=== PATIENT | male | born 1950 | race Caucasian/White ===

== ENCOUNTER 2017-01-08 13:09 | Outpatient (CLI) | payer OTHER | END 2017-01-08 13:10 | DX: I10 Essential (primary) hypertension (principal); E78.5 Hyperlipidemia, unspecified; E11.9 Type 2 diabetes mellitus without complications ==

== ENCOUNTER → 2017-07-25 | Outpatient (CLI) | payer OTHER ==
[2017-07-25 19:29] LABS: HEMOGLOBIN A1C 0.77 g/dL
[2017-07-25 19:34] LABS: CREATININE 1.1 mg/dL (0.6-1.2); POTASSIUM 4.1 mmol/L (3.5-5.0)
== END ==
LOC: LAB.WCP 08:00
PROVIDERS: ATTEND Family Medicine
DX: I10 Essential (primary) hypertension (principal); E11.9 Type 2 diabetes mellitus without complications
CPT/HCPCS: 36415; 80048; 83036

== ENCOUNTER 2018-01-17 08:00 | Outpatient (CLI) | payer MEDICARE, OTHER ==
[2018-01-17 19:22] LABS: CALCIUM 9.7 mg/dL (8.5-10.3); CREATININE 1.1 mg/dL (0.6-1.2)
[2018-01-17 20:13] LABS: HB2 TOTAL 16.7 g/dL; HEMOGLOBIN A1C 0.8 g/dL; HEMOGLOBIN A1C % 6.5 % (4.6-6.2)
== END 2018-01-17 08:01 | disposition home or self-care (01) ==
LOC: LAB.WCP 08:00
PROVIDERS: ATTEND Family Medicine
DX: I10 Essential (primary) hypertension (principal); E11.9 Type 2 diabetes mellitus without complications
CPT/HCPCS: 36415; 80048; 83036

== ENCOUNTER 2018-05-21 14:29 | Outpatient (CLI) | payer MEDICARE, OTHER ==
[2018-05-21 19:06] LABS: BASOPHILS # (AUTO) 0.1 10^3/uL (0.0-0.1); BASOPHILS % (AUTO) 0.9 %; EOSINOPHILS # (AUTO) 0.1 10^3/uL (0.0-0.7); EOSINOPHILS % (AUTO) 2.1 %; HGB - HEMOGLOBIN 14.9 g/dL (14.0-18.0); LYMPHOCYTES # (AUTO) 1.3 10^3/uL (1.5-3.5); LYMPHOCYTES % (AUTO) 22.6 %; MEAN CORPUSCULAR HEMOGLOBIN 31.3 pg (27.0-31.0); MEAN CORPUSCULAR HGB CONC 33.7 g/dL (32.0-36.0); MEAN CORPUSCULAR VOLUME 93.1 fL (80.0-94.0); MEAN PLATELET VOLUME 9.7 fL (7.4-11.4); MONOCYTES # (AUTO) 0.5 10^3/uL (0.0-1.0); MONOCYTES % (AUTO) 9.2 %; NEUTROPHILS # (AUTO) 3.7 10^3/uL (1.5-6.6); NEUTROPHILS % (AUTO) 65.2 %; PLT - PLATELET COUNT 209 10^3/uL (130-450); RED BLOOD COUNT 4.77 10^6/uL (4.70-6.10); RED CELL DISTRIBUTION WIDTH 14.3 % (12.0-15.0); WHITE BLOOD COUNT 5.7 x10^3/uL (4.8-10.8)
[2018-05-21 19:22] LABS: HB2 TOTAL 16.1 g/dL; HEMOGLOBIN A1C 0.69 g/dL; HEMOGLOBIN A1C % 6.1 % (4.6-6.2)
[2018-05-21 19:37] LABS: ALBUMIN 3.6 g/dL (3.2-5.5); ALBUMIN/GLOBULIN RATIO 1.1 (1.0-2.2); ALKALINE PHOSPHATASE 40 IU/L (42-121); ALT ALANINE AMINOTRANSFERASE 41 IU/L (10-60); AST ASPARTATE AMINOTRANSFERASE 31 IU/L (10-42); BILIRUBIN,TOTAL 0.9 mg/dL (0.2-1.0); BUN - BLOOD UREA NITROGEN 22 mg/dL (6-20); CARBON DIOXIDE - CO2 25 mmol/L (21-32); CHLORIDE 105 mmol/L (101-111); CHOL/HDL RATIO 6.2 (<5.0); CHOLESTEROL 186 mg/dL; CREATININE 1.1 mg/dL (0.6-1.2); GFR - MDRD 67 (>89); GLUCOSE 136 mg/dL (70-100); HDL CHOLESTEROL 30 mg/dL; LDL CHOLESTEROL,CALCULATED 124 mg/dL; LDL/HDL RATIO 4.1 (<3.6); SODIUM 138 mmol/L (135-145); VLDL CHOLESTEROL 32 mg/dL
== END 2018-05-21 14:30 | disposition home or self-care (01) ==
LOC: LAB.WCP 14:29
PROVIDERS: ATTEND Family Medicine
DX: E78.5 Hyperlipidemia, unspecified (principal); E11.9 Type 2 diabetes mellitus without complications; I10 Essential (primary) hypertension
CPT/HCPCS: 36415; 80053; 80061; 82043; 83036; 83721; 85025

== ENCOUNTER 2019-06-25 14:25 | Outpatient (CLI) | payer MEDICARE, OTHER ==
[2019-06-25 19:18] LABS: BASOPHILS # (AUTO) 0.1 10^3/uL (0.0-0.1); BASOPHILS % (AUTO) 1.3 %; EOSINOPHILS # (AUTO) 0.2 10^3/uL (0.0-0.7); EOSINOPHILS % (AUTO) 2.4 %; HGB - HEMOGLOBIN 15.8 g/dL (14.0-18.0); LYMPHOCYTES # (AUTO) 1.3 10^3/uL (1.5-3.5); LYMPHOCYTES % (AUTO) 20.4 %; MEAN CORPUSCULAR HEMOGLOBIN 30.4 pg (27.0-31.0); MEAN CORPUSCULAR VOLUME 92.1 fL (80.0-94.0); MEAN PLATELET VOLUME 11.9 fL (7.4-11.4); MONOCYTES # (AUTO) 0.6 10^3/uL (0.0-1.0); MONOCYTES % (AUTO) 9.3 %; NEUTROPHILS # (AUTO) 4.1 10^3/uL (1.5-6.6); PLT - PLATELET COUNT 227 10^3/uL (130-450); RED CELL DISTRIBUTION WIDTH 13.6 % (12.0-15.0); WHITE BLOOD COUNT 6.2 x10^3/uL (4.8-10.8)
[2019-06-25 19:35] LABS: ALBUMIN/GLOBULIN RATIO 1.2 (1.0-2.2); ALKALINE PHOSPHATASE 43 IU/L (42-121); ALT ALANINE AMINOTRANSFERASE 22 IU/L (10-60); AST ASPARTATE AMINOTRANSFERASE 21 IU/L (10-42); BILIRUBIN,TOTAL 0.8 mg/dL (0.2-1.0); BUN - BLOOD UREA NITROGEN 15 mg/dL (6-20); CALCIUM 9.1 mg/dL (8.5-10.3); CARBON DIOXIDE - CO2 25 mmol/L (21-32); CHLORIDE 102 mmol/L (101-111); CHOL/HDL RATIO 6.9 (<5.0); CHOLESTEROL 201 mg/dL; CREATININE 1.2 mg/dL (0.6-1.2); GFR - MDRD 61 (>89); GLUCOSE 146 mg/dL (70-100); HDL CHOLESTEROL 29 mg/dL; LDL CHOLESTEROL,CALCULATED 145 mg/dL; SODIUM 139 mmol/L (135-145); TOTAL PROTEIN 7.3 g/dL (6.7-8.2); VLDL CHOLESTEROL 27 mg/dL
[2019-06-25 20:14] LABS: HB2 TOTAL 16.8 g/dL; HEMOGLOBIN A1C 0.94 g/dL; HEMOGLOBIN A1C % 7.3 % (4.6-6.2)
== END 2019-06-25 23:59 | disposition home or self-care (01) ==
LOC: LAB.WC 14:25
PROVIDERS: ATTEND Family Medicine
DX: E11.9 Type 2 diabetes mellitus without complications (principal); Z12.5 Encounter for screening for malignant neoplasm of prostate
CPT/HCPCS: 36415; 80053; 80061; 83036; 83721; 84153; 85025

== ENCOUNTER 2019-09-24 05:50 | Day surgery (SDC) | payer MEDICARE, OTHER ==
[2019-09-24] MEDS ORDERED: fentaNYL 250 MCG/5 ML VIAL IVP ONE (05:51)
[2019-09-24] MEDS ORDERED: MIDAZOLAM 2 MG/2 ML VIAL IVP ONE (05:51)
[2019-09-24] MEDS ORDERED: LACTATED RINGERS 1,000 ML IV ONE (06:52)
[2019-09-24 08:34] VITALS: BP 104/56
== END 2019-09-24 05:51 | disposition home or self-care (01) ==
LOC: SDS 05:50
PROVIDERS: ATTEND Surgery
PROC: 0DJD8ZZ Inspection of Lower Intestinal Tract, Via Natural or Artificial Opening Endoscopic (ICD-10-PCS; principal; 2019-09-24 07:30)
DX: Z12.11 Encounter for screening for malignant neoplasm of colon (principal); I10 Essential (primary) hypertension; E11.9 Type 2 diabetes mellitus without complications; E66.9 Obesity, unspecified; Z79.899 Other long term (current) drug therapy; Z79.4 Long term (current) use of insulin; Z87.891 Personal history of nicotine dependence; Z68.38 Body mass index [BMI] 38.0-38.9, adult
CPT/HCPCS: G0121; J3010; J7120

== ENCOUNTER 2020-08-31 08:00 | Outpatient (CLI) | payer MEDICARE, OTHER ==
[2020-08-31 18:05] LABS: BASOPHILS # (AUTO) 0.1 10^3/uL (0.0-0.1); BASOPHILS % (AUTO) 1.1 %; EOSINOPHILS # (AUTO) 0.2 10^3/uL (0.0-0.7); EOSINOPHILS % (AUTO) 3.5 %; LYMPHOCYTES # (AUTO) 1.1 10^3/uL (1.5-3.5); MEAN CORPUSCULAR HEMOGLOBIN 30.1 pg (27.0-31.0); MEAN CORPUSCULAR HGB CONC 33.3 g/dL (32.0-36.0); MEAN CORPUSCULAR VOLUME 90.2 fL (80.0-94.0); MEAN PLATELET VOLUME 11.5 fL (7.4-11.4); MONOCYTES # (AUTO) 0.6 10^3/uL (0.0-1.0); MONOCYTES % (AUTO) 10.1 %; NEUTROPHILS # (AUTO) 3.5 10^3/uL (1.5-6.6); NEUTROPHILS % (AUTO) 64.9 %; PLT - PLATELET COUNT 246 10^3/uL (130-450); RED BLOOD COUNT 5.32 10^6/uL (4.70-6.10); RED CELL DISTRIBUTION WIDTH 13.6 % (12.0-15.0); WHITE BLOOD COUNT 5.4 x10^3/uL (4.8-10.8)
[2020-08-31 18:23] LABS: ALBUMIN 4.1 g/dL (3.2-5.5); ALBUMIN/GLOBULIN RATIO 1.2 (1.0-2.2); ALKALINE PHOSPHATASE 45 IU/L (42-121); ALT ALANINE AMINOTRANSFERASE 21 IU/L (10-60); AST ASPARTATE AMINOTRANSFERASE 19 IU/L (10-42); BILIRUBIN,TOTAL 0.6 mg/dL (0.2-1.0); BUN - BLOOD UREA NITROGEN 23 mg/dL (6-20); CALCIUM 9.7 mg/dL (8.5-10.3); CARBON DIOXIDE - CO2 25 mmol/L (21-32); CHLORIDE 102 mmol/L (101-111); CHOL/HDL RATIO 5.8 (<5.0); CHOLESTEROL 168 mg/dL; CREATININE 1.1 mg/dL (0.6-1.2); CREATININE,URINE 99.4 mg/dL; GLUCOSE 156 mg/dL (70-100); HDL CHOLESTEROL 29 mg/dL; LDL CHOLESTEROL,CALCULATED 96 mg/dL; LDL/HDL RATIO 3.3 (<3.6); MICROALBUMIN,URINE 0.4 mg/dL (0-300.0); SODIUM 135 mmol/L (135-145); TOTAL PROTEIN 7.5 g/dL (6.7-8.2); VLDL CHOLESTEROL 43 mg/dL
[2020-08-31 20:05] LABS: HEMOGLOBIN A1c% 7.3 % (4.27-6.07)
== END 2020-08-31 23:59 | disposition home or self-care (01) ==
LOC: LAB.WCP 08:00
PROVIDERS: ATTEND Family Medicine
DX: E11.9 Type 2 diabetes mellitus without complications (principal); Z12.5 Encounter for screening for malignant neoplasm of prostate
CPT/HCPCS: 36415; 80053; 80061; 82043; 82570; 83036; 85025; G0103; 83721; 84153

== ENCOUNTER 2021-01-10 09:45 | Outpatient (CLI) | payer MEDICARE, OTHER ==
--- NOTE | 2021-01-10 14:57 | Ultrasound Report ---
PROCEDURE: Aorta Screening INDICATIONS: NICOTINE ADDICTION IN REMISSION TECHNIQUE: Real time scanning was performed of the aorta and iliac arteries, with image documentatio n. COMPARISON: None. FINDINGS: Aorta: Proximal aortic diameter was not measured secondary to overlying bowel gas. Mid-aorta measure s 3.1 x 3.1 cm. Distal aortic diameter is 1.8 x 2.0 cm. Iliac arteries: Right common iliac artery measures 1.3 x 1.3 cm. Left common iliac artery measures 1.1 x 1.2 cm. IMPRESSION: Limited visualization of the abdominal aorta secondary to moderate amount of overlying bowel gas. The proximal aorta was not well visualized. There is mild aneurysmal dilatation of the mid abdominal aor ta measuring 3.1 x 3.1 cm. Based on consensus criteria, recommend follow-up ultrasound in 3 years. Reviewed by: Tomás Dodd MD on 01/10/2021 2:55 PM PST Approved by: Tomás Dodd MD on 01/10/2021 2:55 PM PST Station ID: [id number]
== END 2021-01-10 09:46 | disposition home or self-care (01) ==
LOC: DI 09:45
PROVIDERS: ATTEND Family Medicine
DX: Z13.6 Encounter for screening for cardiovascular disorders (principal); I71.4 Abdominal aortic aneurysm, without rupture; F17.201 Nicotine dependence, unspecified, in remission

== ENCOUNTER 2021-12-25 15:05 | Outpatient (CLI) | payer MEDICARE, OTHER ==
[2021-12-25 15:19] LABS: BASOPHILS # (AUTO) 0.1 10^3/uL (0.0-0.1); EOSINOPHILS # (AUTO) 0.1 10^3/uL (0.0-0.7); EOSINOPHILS % (AUTO) 1.8 %; HCT - HEMATOCRIT 47.1 % (42.0-52.0); HGB - HEMOGLOBIN 15.8 g/dL (14.0-18.0); LYMPHOCYTES # (AUTO) 1.3 10^3/uL (1.5-3.5); LYMPHOCYTES % (AUTO) 18.1 %; MEAN CORPUSCULAR HEMOGLOBIN 30.5 pg (27.0-31.0); MEAN CORPUSCULAR HGB CONC 33.5 g/dL (32.0-36.0); MEAN CORPUSCULAR VOLUME 90.9 fL (80.0-94.0); MEAN PLATELET VOLUME 10.4 fL (7.4-11.4); MONOCYTES # (AUTO) 0.6 10^3/uL (0.0-1.0); MONOCYTES % (AUTO) 7.8 %; NEUTROPHILS # (AUTO) 5.2 10^3/uL (1.5-6.6); NEUTROPHILS % (AUTO) 70.9 %; PLT - PLATELET COUNT 250 10^3/uL (130-450); RED BLOOD COUNT 5.18 10^6/uL (4.70-6.10); RED CELL DISTRIBUTION WIDTH 13.6 % (12.0-15.0); WHITE BLOOD COUNT 7.3 x10^3/uL (4.8-10.8)
[2021-12-25 15:37] LABS: ALBUMIN 4.1 g/dL (3.2-5.5); ALBUMIN/GLOBULIN RATIO 1.1 (1.0-2.2); ALKALINE PHOSPHATASE 45 IU/L (42-121); ALT ALANINE AMINOTRANSFERASE 20 IU/L (10-60); AST ASPARTATE AMINOTRANSFERASE 17 IU/L (10-42); BILIRUBIN,TOTAL 0.9 mg/dL (0.2-1.0); BUN - BLOOD UREA NITROGEN 18 mg/dL (6-20); CALCIUM 9.4 mg/dL (8.5-10.3); CARBON DIOXIDE - CO2 28 mmol/L (21-32); CHLORIDE 99 mmol/L (101-111); CHOL/HDL RATIO 4.3 (<5.0); CHOLESTEROL 143 mg/dL; CREATININE 1.3 mg/dL (0.6-1.2); GFR - MDRD 55 (>89); GLUCOSE 133 mg/dL (70-100); HDL CHOLESTEROL 33 mg/dL; LDL CHOLESTEROL,CALCULATED 92 mg/dL; LDL/HDL RATIO 2.8 (<3.6); POTASSIUM 4.2 mmol/L (3.5-5.0); SODIUM 137 mmol/L (135-145); TOTAL PROTEIN 7.9 g/dL (6.7-8.2); TRIGLYCERIDES 91 mg/dL; VLDL CHOLESTEROL 18 mg/dL
[2021-12-25 19:58] LABS: ESTIMATED AVERAGE GLUCOSE 169 mg/dL (70-100); HEMOGLOBIN A1c% 7.5 % (4.27-6.07)
== END 2021-12-25 15:06 | disposition home or self-care (01) ==
LOC: LAB 15:05
PROVIDERS: ATTEND Family Medicine
DX: E11.9 Type 2 diabetes mellitus without complications (principal)
CPT/HCPCS: 36415; 80053; 80061; 83036; 83721; 85025

== ENCOUNTER 2022-09-06 12:43 | Outpatient (CLI) | payer MEDICARE, OTHER ==
[2022-09-06 18:11] LABS: BASOPHILS # (AUTO) 0.1 10^3/uL (0.0-0.1); BASOPHILS % (AUTO) 0.8 %; EOSINOPHILS # (AUTO) 0.1 10^3/uL (0.0-0.7); EOSINOPHILS % (AUTO) 1.9 %; HCT - HEMATOCRIT 46.1 % (42.0-52.0); HGB - HEMOGLOBIN 14.6 g/dL (14.0-18.0); LYMPHOCYTES # (AUTO) 1.1 10^3/uL (1.5-3.5); LYMPHOCYTES % (AUTO) 17.5 %; MEAN CORPUSCULAR HEMOGLOBIN 29.1 pg (27.0-31.0); MEAN CORPUSCULAR HGB CONC 31.7 g/dL (32.0-36.0); MEAN CORPUSCULAR VOLUME 91.8 fL (80.0-94.0); MEAN PLATELET VOLUME 11.1 fL (7.4-11.4); MONOCYTES # (AUTO) 0.5 10^3/uL (0.0-1.0); MONOCYTES % (AUTO) 7.2 %; NEUTROPHILS # (AUTO) 4.6 10^3/uL (1.5-6.6); NEUTROPHILS % (AUTO) 72.1 %; PLT - PLATELET COUNT 258 10^3/uL (130-450); RED BLOOD COUNT 5.02 10^6/uL (4.70-6.10); WHITE BLOOD COUNT 6.4 x10^3/uL (4.8-10.8)
[2022-09-06 18:21] LABS: ALBUMIN 3.6 g/dL (3.2-5.5); ALBUMIN/GLOBULIN RATIO 0.9 (1.0-2.2); ALKALINE PHOSPHATASE 50 IU/L (42-121); ALT ALANINE AMINOTRANSFERASE 20 IU/L (10-60); AST ASPARTATE AMINOTRANSFERASE 18 IU/L (10-42); BILIRUBIN,TOTAL 0.6 mg/dL (0.2-1.0); BUN - BLOOD UREA NITROGEN 21 mg/dL (6-20); CALCIUM 9.2 mg/dL (8.5-10.3); CARBON DIOXIDE - CO2 26 mmol/L (21-32); CHLORIDE 102 mmol/L (101-111); CHOLESTEROL 135 mg/dL; CREATININE 1.1 mg/dL (0.6-1.2); GFR - MDRD 66 (>89); GLUCOSE 134 mg/dL (70-100); HDL CHOLESTEROL 34 mg/dL; LDL CHOLESTEROL,CALCULATED 91 mg/dL; LDL/HDL RATIO 2.7 (<3.6); POTASSIUM 4.4 mmol/L (3.5-5.0); SODIUM 136 mmol/L (135-145); TOTAL PROTEIN 7.6 g/dL (6.7-8.2); TRIGLYCERIDES 51 mg/dL; VLDL CHOLESTEROL 10 mg/dL
[2022-09-06 20:51] LABS: ESTIMATED AVERAGE GLUCOSE 160 mg/dL (70-100); HEMOGLOBIN A1c% 7.2 % (4.27-6.07)
== END 2022-09-06 12:44 | disposition home or self-care (01) ==
LOC: LAB.N 12:43
PROVIDERS: ATTEND Nurse Practitioner
DX: I10 Essential (primary) hypertension (principal); E78.5 Hyperlipidemia, unspecified; E11.9 Type 2 diabetes mellitus without complications; G62.9 Polyneuropathy, unspecified; Z12.5 Encounter for screening for malignant neoplasm of prostate
CPT/HCPCS: 36415; 80053; 80061; 82607; 83036; 85025; G0103; 82043; 82570; 83721; 84153

== ENCOUNTER 2022-09-07 13:22 | Outpatient (CLI) | payer MEDICARE, OTHER ==
[2022-09-07 18:27] LABS: CREATININE,URINE 161.6 mg/dL; MICROALBUM/CREATININE RATIO,UR 2.5 ug/mg (<30.0); MICROALBUMIN,URINE 0.4 mg/dL (0-300.0)
== END 2022-09-07 23:59 | disposition home or self-care (01) ==
LOC: LAB.R 13:22
PROVIDERS: ATTEND Nurse Practitioner
DX: E11.9 Type 2 diabetes mellitus without complications (principal)
CPT/HCPCS: 82043; 82570

== ENCOUNTER 2022-09-14 10:05 | Outpatient (CLI) | payer MEDICARE, OTHER ==
--- NOTE | 2022-09-14 13:53 | Ultrasound Report ---
PROCEDURE: Retroperitoneal Limited INDICATIONS: AAA. History of smoking, hypertension, hyperlipidemia, diabetes. TECHNIQUE: Real time scanning was performed of the aorta and iliac arteries, with image documentatio n. COMPARISON: Aorta ultrasound 01/10/2021. FINDINGS: Aorta: Proximal aortic diameter measures 2.2 x 2.0 cm. Mid-aorta measures 1.8 x 1.8 cm. Distal aor tic diameter is 1.8 x 1.7 cm. Iliac arteries: Right common iliac artery measures 0.9 x 0.7 cm. Left common iliac artery measures 2.9 x 0.9 cm. Multiple gallstones are incidentally visualized. No gallbladder wall thickening visualized. IMPRESSION: 1. No abdominal aortic aneurysm identified on this exam. Unclear if the aortic measurements on the pr evious exam were artifactually increased due to relatively poor visualization. For future follow-up, could consider CT angiogram of the abdomen and pelvis or CT could be performed sooner at clinical dis cretion. 2. Cholelithiasis. Reviewed by: Santy Morales MD on 09/14/2022 1:52 PM PDT Approved by: Santy Morales MD on 09/14/2022 1:52 PM PDT Station ID: [id number]
== END 2022-09-14 10:06 | disposition home or self-care (01) ==
LOC: DI 10:05
PROVIDERS: ATTEND Nurse Practitioner
DX: K80.20 Calculus of gallbladder without cholecystitis without obstruction (principal)

== ENCOUNTER 2023-04-15 15:06 | Outpatient (CLI) | payer MEDICARE, OTHER ==
--- NOTE | 2023-04-15 18:55 | XRAY Report ---
PROCEDURE: Shoulder 3 View LT INDICATIONS: PAIN IN LEFT SHOULDER TECHNIQUE: 3 views of the shoulder were acquired. COMPARISON: None. FINDINGS: Bones: No fractures or dislocations. No suspicious bony lesions. Visualized ribs appear intact. Soft tissues: No suspicious soft tissue calcifications. IMPRESSION: Unremarkable left shoulder radiographs Reviewed by: Kee Mackenzie MD on 04/15/2023 5:53 PM AKDT Approved by: Kee Mackenzie MD on 04/15/2023 5:53 PM AKDT Station ID: [id number]
== END 2023-04-15 15:07 | disposition home or self-care (01) ==
LOC: DI.N 15:06
PROVIDERS: ATTEND Registered Nurse
DX: M25.512 Pain in left shoulder (principal)

== ENCOUNTER 2023-12-10 10:25 | Outpatient (CLI) | payer MEDICARE, OTHER ==
[2023-12-10 12:36] LABS: BASOPHILS # (AUTO) 0.1 10^3/uL (0.0-0.1); BASOPHILS % (AUTO) 0.9 %; EOSINOPHILS # (AUTO) 0.1 10^3/uL (0.0-0.7); EOSINOPHILS % (AUTO) 1.9 %; HCT - HEMATOCRIT 47.1 % (42.0-52.0); HGB - HEMOGLOBIN 14.8 g/dL (14.0-18.0); LYMPHOCYTES # (AUTO) 1.4 10^3/uL (1.5-3.5); LYMPHOCYTES % (AUTO) 18.2 %; MEAN CORPUSCULAR HEMOGLOBIN 28.3 pg (27.0-31.0); MEAN CORPUSCULAR HGB CONC 31.4 g/dL (32.0-36.0); MEAN CORPUSCULAR VOLUME 90.1 fL (80.0-94.0); MONOCYTES # (AUTO) 0.6 10^3/uL (0.0-1.0); MONOCYTES % (AUTO) 8.2 %; NEUTROPHILS # (AUTO) 5.3 10^3/uL (1.5-6.6); NEUTROPHILS % (AUTO) 70.3 %; PLT - PLATELET COUNT 318 10^3/uL (130-450); RED BLOOD COUNT 5.23 10^6/uL (4.70-6.10); RED CELL DISTRIBUTION WIDTH 14.3 % (12.0-15.0); WHITE BLOOD COUNT 7.5 x10^3/uL (4.8-10.8)
[2023-12-10 13:13] LABS: ALBUMIN 3.8 g/dL (3.2-5.5); ALBUMIN/GLOBULIN RATIO 0.9 (1.0-2.2); ALKALINE PHOSPHATASE 52 IU/L (42-121); ALT ALANINE AMINOTRANSFERASE 13 IU/L (10-60); AST ASPARTATE AMINOTRANSFERASE 13 IU/L (10-42); BILIRUBIN,TOTAL 0.6 mg/dL (0.2-1.0); BUN - BLOOD UREA NITROGEN 19 mg/dL (6-20); CALCIUM 10.1 mg/dL (8.5-10.3); CARBON DIOXIDE - CO2 31 mmol/L (21-32); CHLORIDE 100 mmol/L (101-111); CHOL/HDL RATIO 4.2 (<5.0); CHOLESTEROL 135 mg/dL; CREATININE 1.2 mg/dL (0.6-1.3); GFR - MDRD 60 (>89); GLUCOSE 129 mg/dL (74-104); HDL CHOLESTEROL 32 mg/dL; LDL CHOLESTEROL,CALCULATED 80 mg/dL; LDL/HDL RATIO 2.5 (<3.6); POTASSIUM 4.1 mmol/L (3.5-4.5); SODIUM 137 mmol/L (135-145); TOTAL PROTEIN 8.2 g/dL (6.4-8.9); TRIGLYCERIDES 115 mg/dL (48-352); VLDL CHOLESTEROL 23 mg/dL
[2023-12-10 13:25] LABS: CREATININE,URINE 99.3 mg/dL; MICROALBUM/CREATININE RATIO,UR 8.1 ug/mg (<30.0); MICROALBUMIN,URINE 0.8 mg/dL
[2023-12-10 21:09] LABS: ESTIMATED AVERAGE GLUCOSE 189 mg/dL (70-100); HEMOGLOBIN A1c% 8.2 % (4.27-6.07)
== END 2023-12-10 10:26 | disposition home or self-care (01) ==
LOC: LAB.N 10:25
PROVIDERS: ATTEND Nurse Practitioner
DX: I10 Essential (primary) hypertension (principal); E78.5 Hyperlipidemia, unspecified; E11.9 Type 2 diabetes mellitus without complications; N40.1 Benign prostatic hyperplasia with lower urinary tract symptoms
CPT/HCPCS: 36415; 80053; 80061; 82043; 82570; 83036; 83721; 84153; 85025

== ENCOUNTER 2024-03-05 13:38 | Outpatient (CLI) | payer MEDICARE, OTHER ==
[2024-03-05 17:39] LABS: BASOPHILS # (AUTO) 0.1 10^3/uL (0.0-0.1); BASOPHILS % (AUTO) 0.7 %; EOSINOPHILS # (AUTO) 0.2 10^3/uL (0.0-0.7); EOSINOPHILS % (AUTO) 2.2 %; HCT - HEMATOCRIT 41.6 % (42.0-52.0); HGB - HEMOGLOBIN 13.1 g/dL (14.0-18.0); LYMPHOCYTES # (AUTO) 1.2 10^3/uL (1.5-3.5); LYMPHOCYTES % (AUTO) 14.1 %; MEAN CORPUSCULAR HEMOGLOBIN 28.5 pg (27.0-31.0); MEAN CORPUSCULAR HGB CONC 31.5 g/dL (32.0-36.0); MEAN CORPUSCULAR VOLUME 90.4 fL (80.0-94.0); MEAN PLATELET VOLUME 10.3 fL (7.4-11.4); MONOCYTES # (AUTO) 0.7 10^3/uL (0.0-1.0); NEUTROPHILS # (AUTO) 6.2 10^3/uL (1.5-6.6); NEUTROPHILS % (AUTO) 74.6 %; PLT - PLATELET COUNT 287 10^3/uL (130-450); RED CELL DISTRIBUTION WIDTH 15.1 % (12.0-15.0); WHITE BLOOD COUNT 8.3 x10^3/uL (4.8-10.8)
[2024-03-05 17:59] LABS: ALBUMIN 3.6 g/dL (3.2-5.5); ALBUMIN/GLOBULIN RATIO 0.9 (1.0-2.2); BILIRUBIN,TOTAL 0.5 mg/dL (0.2-1.0); CALCIUM 9.6 mg/dL (8.5-10.3); POTASSIUM 3.7 mmol/L (3.5-4.5); TOTAL PROTEIN 7.5 g/dL (6.4-8.9)
[2024-03-05 20:07] LABS: ESTIMATED AVERAGE GLUCOSE 157 mg/dL (70-100); HEMOGLOBIN A1c% 7.1 % (4.27-6.07)
== END 2024-03-05 13:39 | disposition home or self-care (01) ==
LOC: LAB.N 13:38
PROVIDERS: ATTEND Nurse Practitioner
DX: I10 Essential (primary) hypertension (principal); E11.9 Type 2 diabetes mellitus without complications; R05.9 Cough, unspecified
CPT/HCPCS: 36415; 80053; 83036; 85025

== ENCOUNTER 2024-03-11 15:18 | Outpatient (CLI) | payer MEDICARE, OTHER ==
--- NOTE | 2024-03-11 21:44 | XRAY Report ---
PROCEDURE: Chest 2V INDICATIONS: COUGH CHRONIC TECHNIQUE: 2 views of the chest were acquired. COMPARISON: None. FINDINGS: Surgical changes and devices: None. Lungs and pleura: No pleural effusions or pneumothorax. Moderate sized airspace opacity in right upp er to midlung field is seen. Left lung is clear. Mediastinum: Mediastinal contours appear normal. Heart size is normal. Bones and chest wall: No suspicious bony lesions. Overlying soft tissues appear unremarkable. IMPRESSION: Finding is suggestive of a moderate size right upper lobe infiltrate. Left lung is clear. If indicate d, CT of chest can be done for further evaluation of this region to rule out underlying malignant pro cess. Reviewed by: Perez Diaz MD on 03/11/2024 9:43 PM PDT Approved by: Perez Diaz MD on 03/11/2024 9:43 PM PDT Station ID: [id number]
== END 2024-03-11 15:19 | disposition home or self-care (01) ==
LOC: DI.N 15:18
PROVIDERS: ATTEND Nurse Practitioner
DX: R91.8 Other nonspecific abnormal finding of lung field (principal)

== ENCOUNTER 2024-04-14 15:19 | Outpatient (CLI) | payer MEDICARE, OTHER ==
--- NOTE | 2024-04-14 16:32 | XRAY Report ---
PROCEDURE: Chest 2V INDICATIONS: CHRONIC COUGH TECHNIQUE: 2 views of the chest were acquired. COMPARISON: 03/11/2024. FINDINGS: Surgical changes and devices: None. Lungs and pleura: No pleural effusions or pneumothorax. Again seen moderate size airspace opacity wi thin the right mid and upper lung mcfadden. Mediastinum: Mediastinal contours appear normal. Heart size is normal. Bones and chest wall: No suspicious bony lesions. Overlying soft tissues appear unremarkable. IMPRESSION: Similar appearance of moderate-sized airspace opacity within the right mid and upper lung mcfadden. Giv en persistence, consider CT chest for further evaluation. Reviewed by: Nikhil Snider MD on 04/14/2024 4:30 PM PDT Approved by: Nikhil Sinder MD on 04/14/2024 4:30 PM PDT Station ID: [id number]
== END 2024-04-14 15:20 | disposition home or self-care (01) ==
LOC: DI.N 15:19
PROVIDERS: ATTEND Nurse Practitioner
DX: R05.3 Chronic cough (principal); R91.8 Other nonspecific abnormal finding of lung field

== ENCOUNTER 2024-04-20 10:22 | Outpatient (CLI) | payer MEDICARE, OTHER ==
--- NOTE | 2024-04-20 15:02 | XRAY Report ---
PROCEDURE: Thoracic Spine 2V INDICATIONS: STRAIN OF MUSCLE AND TENDON OF BACK WALL OF THORAX TECHNIQUE: 2 views of the thoracic spine were acquired. COMPARISON: None. FINDINGS: Bones: Overall mild to moderate degenerative changes. Contiguous ossification of the anterior longitu dinal ligament. Vertebral body heights are well-maintained. No traumatic subluxation. The cervical th oracic junction is not well seen. Soft tissues: No suspicious calcifications. IMPRESSION: DISH and mild to moderate spondylosis. No acute radiographic abnormality. If there is high concern fo r further derangement, consider MRI evaluation. Reviewed by: Marshall Hudson MD on 04/20/2024 3:01 PM PDT Approved by: Marshall Hudson MD on 04/20/2024 3:01 PM PDT Station ID: [id number]
--- NOTE | 2024-04-20 15:03 | XRAY Report ---
PROCEDURE: Shoulder 2+V RT INDICATIONS: PAIN IN RIGHT SHOULDER TECHNIQUE: 3 views of the shoulder were acquired. COMPARISON: None. FINDINGS: Bones: Moderate acromioclavicular and mild glenohumeral degenerative changes. No acute displaced frac ture or dislocation. Soft tissues: Right perihilar opacity is present. IMPRESSION: Moderate acromioclavicular and mild glenohumeral degenerative changes. If there is high concern for f urther derangement, consider MRI evaluation. Right perihilar pulmonary opacity is present, consider chest imaging follow-up. Reviewed by: Marshall Hudson MD on 04/20/2024 3:02 PM PDT Approved by: Marshall Hudson MD on 04/20/2024 3:02 PM PDT Station ID: [id number]
== END 2024-04-20 10:23 | disposition home or self-care (01) ==
LOC: DI.N 10:22
PROVIDERS: ATTEND Physician Assistant Medical
DX: M48.14 Ankylosing hyperostosis [Forestier], thoracic region (principal); M47.814 Spondylosis without myelopathy or radiculopathy, thoracic region; M19.011 Primary osteoarthritis, right shoulder; R91.8 Other nonspecific abnormal finding of lung field

== ENCOUNTER 2024-04-21 14:35 | Outpatient (CLI) | payer MEDICARE, OTHER ==
--- NOTE | 2024-04-22 16:58 | CT Report ---
PROCEDURE: Chest WO INDICATIONS: CHRONIC COUGH, ABN RIGHT LUNG CXR TECHNIQUE: A CT scan of the chest was performed. Intravenous contrast media was not administered. Images were re corded and evaluated at appropriate window settings. Reformats: axial MIP of the chest, coronal and s agittal. For radiation dose reduction, the following was used: automated exposure control, adjustment of mA and/or kV according to patient size. COMPARISON: Chest x-ray, 04/14/2024. FINDINGS: Image quality: Diagnostic. Chest wall and lower neck: No thyroid nodule which requires sonographic follow up. No axillary or sup raclavicular adenopathy by size. Lungs and pleura: Bilateral subpleural septal thickening and mild pulmonary fibrosis. There is a righ t lower lobe consolidation. No consolidation. No pleural effusions. No pneumothorax. No suspicious p ulmonary nodules which require follow up. Mediastinum: Heart size is normal. There is pericardial calcification. No pericardial effusion. Mild coronary calcification. No large vessel abnormality. There is a 1.0 x 1.5 cm right paratracheal lymph node. Borderline sized AP window lymph node is identified. There is a small hiatal hernia. Bones: Mild compression fracture of T5. There is osteopenia. Spondylitic changes noted in thoracic sp ine. No aggressive osseous abnormality. Upper Abdomen: There are multiple gallstones. Diverticulosis. No acute diverticulitis. There is a mod erate amount stool in colon. IMPRESSION: 1. Right lower lobe consolidation suspicious for acute pneumonia. A right lower lobe mass could be ob scured. Recommend a short-term follow-up chest CT with IV contrast after adequate treatment. 2. Bilateral subpleural septal thickening and early pulmonary fibrosis. 3. Mild mediastinal lymphadenopathy, most likely reactive. 4. Pericardial calcification, likely sequelae of pericardial infection (pericarditis). 5. Osteopenia. Mild compression fracture of T5. 6. Small hiatal hernia. 7. Cholelithiasis. 8. Diverticulosis without acute diverticulitis. Reviewed by: Kathy Sears MD on 04/22/2024 3:57 PM AKDT Approved by: Kathy Sears MD on 04/22/2024 3:57 PM AKDT Station ID: [id number]
== END 2024-04-21 14:36 | disposition home or self-care (01) ==
LOC: DI 14:35
PROVIDERS: ATTEND Nurse Practitioner
DX: R91.8 Other nonspecific abnormal finding of lung field (principal); J84.10 Pulmonary fibrosis, unspecified; R59.0 Localized enlarged lymph nodes

== ENCOUNTER 2024-05-02 08:29 | Outpatient (CLI) | payer MEDICARE, OTHER ==
--- NOTE | 2024-05-04 17:29 | MRI Report ---
PROCEDURE: Thoracic Spine WO INDICATIONS: T5-T6 FX TECHNIQUE: Multiplanar multisequence MR images of the thoracic spine was obtained without contrast COMPARISON: CT chest 04/21/2024 FINDINGS: Alignment and Curvature: There is normal bony alignment. Bone Marrow: There is marrow edema involving the T5 and T6 vertebral bodies with involvement of the r ight pedicles. Minimal T5 anterior height loss is similar prior. T6 vertebral body height is maintain ed. Remainder the vertebral bodies are unremarkable. Spinal Cord: Visualized spinal cord is normal in size and signal. Paraspinal Soft Tissues: No paravertebral masses. Miscellaneous: At the T5 and T6 levels, there is a focal pulmonary pleural-based consolidation noted, similar to prior chest CT. Focal disc protrusion at T7 T1 noted centrally. Mild central stenosis IMPRESSION: Marrow edema at T5 and T6 with only minimal height loss of T5 and involvement of the rig ht pedicles. Differential would include recent compression fracture without height loss at T6, and me tastatic disease. Adjacent focal pulmonary consolidation in the right lung present as well. Consider follow-up PET/CT for further evaluation Reviewed by: Kee Mackenzie MD on 05/04/2024 4:27 PM RUDDY Approved by: Kee Mackenzie MD on 05/04/2024 4:27 PM AKMAAME Station ID: [id number]
== END 2024-05-02 08:30 | disposition home or self-care (01) ==
LOC: DI 08:29
PROVIDERS: ATTEND Family Medicine
DX: S22.050A Wedge compression fracture of T5-T6 vertebra, initial encounter for closed fracture (principal)

== ENCOUNTER 2024-05-13 12:19 | Outpatient (CLI) | payer MEDICARE, OTHER ==
[2024-05-13 13:05] LABS: CREATININE 1.3 mg/dL (0.6-1.3)
[2024-05-13] MEDS ORDERED: iohexoL-300 100 ML VIAL ONE (13:29)
[2024-05-13] MEDS: iohexoL-300 100 ML VIAL IVP ONE (15:07)
--- NOTE | 2024-05-13 20:13 | CT Report ---
PROCEDURE: Chest W INDICATIONS: PNA CONTRAST: Omni 300 100ml TECHNIQUE: After the administration of intravenous contrast, a CT scan of the chest was performed. Images were recorded and evaluated at appropriate window settings. Reformats: axial MIP of the chest, coronal and sagittal. For radiation dose reduction, the following was used: automated exposure control, adjustme nt of mA and/or kV according to patient size. COMPARISON: Noncontrast chest CT dated 04/21/2024. FINDINGS: Image quality: Diagnostic. Chest wall and lower neck: No thyroid nodule which requires sonographic follow up. No breast mass. No axillary or supraclavicular adenopathy by size. Lungs and pleura: There is a process present centered in the superior segment of the right lower lobe which is masslike in appearance, abutting the pleura. It may conceivably be a very dense masslike pn eumonia. However, this may potentially represent neoplasm instead. The area measures 7.3 x 4.1 x 6.0 cm. And may potentially be a central mass with peripheral obstructive lung. Reference sagittal image 92 of series 8 and axial image 32 of series 2. No pleural effusions. No pneumothorax. Mild chronic i nterstitial pulmonary fibrosis. Mediastinum: Heart size is normal. No pericardial effusion. No large vessel abnormality. No mediastin al adenopathy by size criteria. However, there is a enhancing right paratracheal lymph node that is s omewhat prominent, measuring approximately 1.6 x 1.0 cm on image 26 of series 2. Bones: No aggressive osseous abnormality. Upper Abdomen: There are large gallstones in the gallbladder. The gallbladder is distended. IMPRESSION: 1. Dense pneumonia versus neoplasm with peripheral obstructive lung. It is centered in the superior s egment of the right lower lobe. Comment: Would continue treatment and repeat CT in 3 months. If this process hasn't resolved, with bi opsy. This would be amenable to CT-guided biopsy, targeting the more central portion of the lesion. Reviewed by: Mj Daniels MD on 05/13/2024 8:11 PM PDT Approved by: Mj Daniels MD on 05/13/2024 8:11 PM PDT Station ID: [id number]
== END 2024-05-13 12:20 | disposition home or self-care (01) ==
LOC: LAB 12:19
PROVIDERS: ATTEND Nurse Practitioner
DX: J18.9 Pneumonia, unspecified organism (principal)
CPT/HCPCS: 36415; 71260; 82565; Q9967

== ENCOUNTER 2024-06-09 13:51 | Outpatient (CLI) | payer MEDICARE, OTHER ==
--- NOTE | 2024-06-09 18:19 | DEXA Report ---
PROCEDURE: Dexa Spine and/or Hip INDICATIONS: WEDGE COMPRESSION FRACUTURE OF T5-T6 VERTEBRA TECHNIQUE: Dual energy x-ray absorptiometry (DXA) was performed on a Plated System. Regions measur ed are the AP Spine, femoral neck, and if needed forearm. COMPARISON: None FINDINGS: Lumbar Spine: Bone Mineral Density: 1.513 g/cm/cm,T score: 2.4. Left Femoral Neck: Bone Mineral Density: 1.043 g/cm/cm, T score: -0.2. Left Hip: Bone Mineral Density: 1.162 g/cm/cm,T score: 0.4. FRAX risk factors: None given. (T score greater or equal to -1.0: NORMAL) (T score from -1.1 to -2.4: OSTEOPENIA) (T score less than or equal to -2.5 to: OSTEOPOROSIS) Impression: By WHO criteria, this patient has normal bone density. Patients with diagnosis of osteoporosis or osteopenia should have regular bone mineral density assess ment. For those eligible for Medicare, routine testing is allowed once every 2 years. Testing frequ ency can be increased for patients who have rapidly progressing disease or for those who are receivin g medical therapy to restore bone mass. Reviewed by: Perez Valentine MD on 06/09/2024 6:18 PM PDT Approved by: Perez Valentine MD on 06/09/2024 6:18 PM PDT Station ID: [id number]
== END 2024-06-09 13:52 | disposition home or self-care (01) ==
LOC: DI 13:51
PROVIDERS: ATTEND Nurse Practitioner
DX: S22.050A Wedge compression fracture of T5-T6 vertebra, initial encounter for closed fracture (principal)